=== PATIENT | female | born 1985 | race Caucasian/White ===

== ENCOUNTER 2020-08-30 15:22 | Outpatient (RCR) | payer MEDICAID, SELFPAY ==
[2020-08-30] MEDS: COVID-19 VACC, MRNA(PFIZER)/PF 30 MCG/0.3 ML SYRINGE IM (08:39)
[2020-09-20] MEDS: COVID-19 VACC, MRNA(PFIZER)/PF 30 MCG/0.3 ML SYRINGE IM (08:30)
== END 2020-11-22 23:59 ==
LOC: IMMUN 15:22
PROVIDERS: Referring Provider Family Medicine; Visit Provider Family Medicine
DX: Z23 Encounter for immunization (principal)
CPT/HCPCS: 0001A; 0002A; 91300